=== PATIENT | female | born 1995 | race American Indian/Alaskan Native ===

== ENCOUNTER 2017-06-14 08:58 | Outpatient (CLI) | payer OTHER ==
[2017-06-14 10:26] VITALS: BP 107/59
[2017-06-14 10:48] LABS: Hemoglobin 8.7 gm/dl (10.1-14.3); Mean Corpuscular HGB Conc 32 % (30-34); Mean Corpuscular Hemoglobin 22 pg (28-32); Mean Corpuscular Volume 69 fl (79-97); Platelet Count 219 K/mm3 (140-440); Red Cell Distribution Width 16.8 % (13.2-15.2); White Blood Count 11.6 K/mm3 (4.5-11.0)
[2017-06-14 11:12] LABS: Alanine Aminotransferase 7 units/L (7-56); Lactate Dehydrogenase 211 units/L (91-180); Uric Acid 5.1 mg/dL (3.5-7.6)
== END 2017-06-14 10:50 | disposition home or self-care (01) ==
LOC: TRG 08:58
PROVIDERS: ATTEND Obstetrics & Gynecology
DX: O47.03 False labor before 37 completed weeks of gestation, third trimester (principal); Z3A.33 33 weeks gestation of pregnancy
CPT/HCPCS: 36415; 82565; 83615; 84450; 84460; 84550; 85027